=== PATIENT | male | born 1995 | race Two or more races ===

== ENCOUNTER 2020-05-25 11:52 | Emergency (ER) | payer MEDICAID ==
[~2020-05-25] VITALS: Ht 185.4 cm; Wt 90.9 kg
[2020-05-25 12:11] VITALS: BP 164/97
[2020-05-25] MEDS ORDERED: ketorolac trometh inj. 60 MG/2 ML VIAL IM ONE (13:05)
[2020-05-25] MEDS ORDERED: ONDA8TAB6 PO (13:07)
[2020-05-25] MEDS ORDERED: HYDR-4353 PO (13:07)
== END 2020-05-25 13:27 | disposition home or self-care (01) ==
LOC: ER 11:53
DX: S93.402A Sprain of unspecified ligament of left ankle, initial encounter (principal); S93.401A Sprain of unspecified ligament of right ankle, initial encounter; W19.XXXA Unspecified fall, initial encounter; Y93.89 Activity, other specified; Y92.89 Other specified places as the place of occurrence of the external cause; Y99.8 Other external cause status
CPT/HCPCS: 73610; 73630; 96372; 99284; J1885